=== PATIENT | female | born 1980 | race Caucasian/White ===

== ENCOUNTER 2017-03-13 12:11 | Emergency (ER) | payer SELFPAY ==
[~2017-03-13] VITALS: Ht 165.1 cm; Wt 63.6 kg
[~2017-03-13 12:11] MED LIST: ATIVAN 0.50.5 MG/TAB PO; LEXAPRO 10MG10 MG PO; LEXAPRO20 MG PO; MIRENA52 MG IY; ULTRAM 50MG TAB50 MG PO
[2017-03-13 12:16] VITALS: BP 107/62; PULSE 69; TEMP 98.2
[2017-03-13] MEDS ORDERED: LEVOXYL0.05 MG PO (12:28)
[2017-03-13 13:03] LABS: BASO % 0.6 % (0.0-2.0); EOS % 0.3 % (0-4.0); GRAN # 1.7 (1.4-6.5); GRAN % 49.8 % (42.2-75.2); HEMOGLOBIN 12.9 g/dl (12.5-16.0); LYMPH # 1.3 (1.2-3.4); LYMPH % 37.5 % (20.0-51.0); MEAN CELL VOLUME 93 fl (80.0-100.0); MEAN CORPUSCULAR HEMOGLOBIN 33 pg (27.0-31.0); MEAN CORPUSCULAR HGB CONC 35 g/dl (33.0-37.0); MEAN PLATELET VOLUME 11.1 fl (7.4-10.4); MONO # 0.4 (0.1-0.6); MONO % 11.8 % (1.7-9.3); PLATELET COUNT 159 K/mm3 (130-400); RED BLOOD COUNT 3.92 M/mm3 (4.10-5.30); REDCELL DISTRIBUTION WIDTH-CV 12.4 % (11.5-14.5); WHITE BLOOD COUNT 3.4 K/mm3 (4.8-10.8)
[2017-03-13 13:04] LABS: HEMATOCRIT 36.4 % (37.0-47.0)
[2017-03-13 13:16] LABS: CALCIUM 8.8 mg/dL (8.4-10.2); CREATININE, serum 1.13 mg/dL (0.52-1.25)
[2017-03-13] MEDS ORDERED: ANTIVERT 25MG25 MG PO (14:01)
[2017-03-13] MEDS ORDERED: ZOFRAN ODT4 MG SL (14:02)
== END 2017-03-13 14:19 | disposition home or self-care (01) ==
LOC: COL.ER 12:11
PROVIDERS: Emergency Medicine
DX: H81.10 Benign paroxysmal vertigo, unspecified ear (principal); E03.9 Hypothyroidism, unspecified; F17.200 Nicotine dependence, unspecified, uncomplicated

== ENCOUNTER 2019-02-06 17:50 | Emergency (ER) | payer BC ==
[~2019-02-06] VITALS: Ht 165.1 cm; Wt 57.7 kg
[~2019-02-06 17:50] MED LIST changes: +ANTIVERT 25MG25 MG PO; +CEFTIN 250250 MG/TAB PO; +CYMBALTA 30MG30 MG PO; +LEVOXYL0.05 MG PO; +PYRIDIUM200 M1 PO; +ZOFRAN ODT4 MG SL
[2019-02-06] MEDS ORDERED: ANTIVERT 25MG25 MG PO (21:48)
[2019-02-06 22:15] VITALS: TEMP 97.5
[2019-02-06] MEDS ORDERED: CELEXA 20MG20 MG/TAB PO (22:39)
[2019-02-06 22:40] VITALS: BP 103/67; PULSE 60
== END 2019-02-06 22:50 | disposition home or self-care (01) ==
LOC: COL.ER 17:50
DX: R42 Dizziness and giddiness (principal)

== ENCOUNTER 2019-08-25 09:10 | Emergency (ER) | payer SELFPAY ==
[~2019-08-25] VITALS: Ht 165.1 cm; Wt 63.6 kg
[~2019-08-25 09:10] MED LIST changes: +CELEXA 20MG20 MG/TAB PO
[2019-08-25 09:16] VITALS: BP 107/70; TEMP 98.2
[2019-08-25] MEDS ORDERED: CHANTIX 1MG1 MG PO (10:06)
[2019-08-25 10:16] VITALS: PULSE 65
== END 2019-08-25 10:16 | disposition home or self-care (01) ==
LOC: COL.ER 09:10
DX: M77.9 Enthesopathy, unspecified (principal)